=== PATIENT | female | born 1960 | race Caucasian/White ===

== ENCOUNTER → 2019-06-23 12:29 | Outpatient (CLI) | payer BC ==
[2019-06-23 12:59] LABS: BASOPHILS 0.2 % (0-2); EOSINOPHILS 1.1 % (0-7); HEMATOCRIT 38.9 % (36.0-48.0); HEMOGLOBIN 12.5 g/dL (12-16); IMMATURE GRANULOCYTES 0.2 % (0-5); LYMPHOCYTES 37.2 % (15-50); MCH 29.2 pg (26.0-34.0); MCHC 32.1 g/dL (31.0-37.0); MCV 90.9 fL (80.0-100.0); MEAN PLATELET VOLUME 9.9 fL (7.4-10.4); NEUTROPHILS 51.3 % (40-80); PLATELET COUNT 351 10x3/uL (130-400); RBC 4.28 10x6/uL (4.00-5.40); WBC 5.3 10x3/uL (4.8-10.8)
[2019-06-23 13:25] LABS: % SATURATION 33 % (15-55); IRON 133 ug/dl (35-150); TOTAL IRON BIND CAPACITY 400 ug/dl (260-445); UNSAT IRON BIND CAPACITY 267 ug/dl (150-375)
[2019-06-23 13:40] LABS: ALBUMIN 4.2 g/dL (3.4-5.0); ALKALINE PHOSPHATASE 76 U/L (30-120); ALT (SGPT) 43 U/L (10-68); BILIRUBIN - DIRECT 0.11 mg/dL (0.00-0.30); BILIRUBIN - INDIRECT 0.27 mg/dL (0.00-1.00); BILIRUBIN - TOTAL 0.38 mg/dL (0.2-1.3); CHOL - HDL RATIO 6.8 ratio (2.3-4.1); CHOLESTEROL, TOTAL 306 mg/dL (0-200); FERRITIN 127 ng/mL (3-244); GAMMA GT 77 U/L (5-85); HDL CHOLESTEROL 45 mg/dL (32-96); LDL CHOLESTEROL 226 mg/dL (0-100); PROTEIN - SERUM 8.2 g/dL (6.4-8.2); TRIGLYCERIDE 175 mg/dL (30-200)
[2019-06-24 05:08] LABS: HAPTOGLOBIN 232 mg/dL (33-346)
[2019-06-24 11:08] LABS: ANA REFLEX - DIRECT Negative (Negative)
[2019-06-25 18:07] LABS: MITOCHONDRIAL ANTIBODY <20.0 Units (0.0-20.0); SMOOTH MUSCLE ABS (ACTIN) 6 Units (0-19)
== END | disposition home or self-care (01) ==
LOC: D.LAB 12:29
PROVIDERS: ATTEND Internal Medicine Gastroenterology
DX: R74.8 Abnormal levels of other serum enzymes (principal)